=== PATIENT | female | born 1995 | race Caucasian/White ===

== ENCOUNTER 2017-09-22 10:52 | Inpatient (IN) | payer BC, OTHER ==
[~2017-09-22] VITALS: Ht 162.6 cm; Wt 92.5 kg
[~2017-09-22 10:52] MED LIST: ARIP2 PO; CITA10SO PO
[2017-09-22 10:55] VITALS: BP 132/83; PULSE 95; RESP 13; TEMP 98.5; O2SAT 97
--- NOTE | 2017-09-22 11:39 | PD ---
HPI Chief Complaint: Psychiatric Symptoms Time Seen by Provider: 11:34 Travel History International Travel<30 days: No Contact w/Intl Traveler<30days: No Traveled to known affect area: No History of Present Illness HPI 21-year-old 27 week female presents to the emergency room for evaluation of suicidal ideation and anxiety. Patient states she has been feeling this way since becoming . She is unsure about the relationship between her and the baby's father, whether or not she wants to keep the baby, and concern because she does not have a job and is not in school. She is history of anxiety and has been admitted before at [facility]. Patient states she was at her OB appointment this morning for routine checkup when she mentioned her feelings to the doctor. He wrote on prescription paper to come to the emergency room for psych evaluation. Patient presents voluntarily and is not under agosto act. She has been feeling suicidal and would use a gun to kill herself. She does not have access to a gun, there is not one in the house. Patient states her baby is healthy. She has normal movement and denies any vaginal bleeding. Patient complains of chest tightness that has been ongoing and is associated with her anxiety. Denies any other medical complaints at this time. Denies alcohol use, smoking cigarettes, or illicit drug use. Denies hallucinations or delusions. PFSH Past Medical History ADHD: Yes (OCD ALONSO) Anxiety: Yes Cancer: No Cardiovascular Problems: No Developmental Delay: No Diabetes: No Psychiatric: Yes (OCD, ALONSO) Immunizations Current: Yes Migraines: Yes Seizures: No Thyroid Disease: No Ulcer: No ?: Past Surgical History Surgical History: No Previous Surgery Social History Alcohol Use: No Tobacco Use: No Substance Use: No Allergies-Medications (Allergen,Severity, Reaction): Coded Allergies: No Known Allergies (Verified Adverse Reaction, Unknown, 09/22/17) Reported Meds & Prescriptions Reported Meds & Active Scripts Active Reported Buspirone (Buspirone HCl) 30 Mg Tab 30 Mg PO DAILY Prozac (Fluoxetine HCl) 20 Mg Cap 20 Mg PO DAILY Review of Systems Except as stated in HPI: all other systems reviewed are Neg Physical Exam Narrative GENERAL: Well-nourished, well-developed female in no acute distress. Afebrile. Ambulatory. SKIN: Focused skin assessment warm/dry. HEAD: Normocephalic. EYES: No scleral icterus. No injection or drainage. NECK: Supple, trachea midline. No JVD or lymphadenopathy. CARDIOVASCULAR: Regular rate and rhythm without murmurs, gallops, or rubs. RESPIRATORY: Breath sounds equal bilaterally. No accessory muscle use. GASTROINTESTINAL: Abdomen soft. Gravid. PSYCHIATRIC: No delusional thought processes. No hallucinations. Tearful. Data Data Last Documented VS Vital Signs Date Time Temp Pulse Resp B/P (MAP) Pulse Ox O2 Delivery O2 Flow Rate FiO2 09/22/17 10:55 98.5 95 13 132/83 (99) 97 Orders Orders Urinalysis - C+S If Indicated (09/22/17 11:09) Heart Tones (09/22/17 11:09) Psych Screen (09/22/17 11:09) Electrocardiogram (09/22/17 ) Complete Blood Count With Diff (09/22/17 11:33) Comprehensive Metabolic Panel (09/22/17 11:33) Alcohol (Ethanol) (09/22/17 11:33) Drug Screen, Random Urine (09/22/17 11:33) Urine Culture (09/22/17 11:55) Potassium Chloride (Kcl) (09/22/17 13:15) Nitrofurantoin Monohyd Macrocr (Macrobid (09/22/17 13:30) Labs Laboratory Tests Test 09/22/17 11:55 White Blood Count 9.4 TH/MM3 Red Blood Count 3.87 MIL/MM3 Hemoglobin 11.7 GM/DL Hematocrit 34.0 % Mean Corpuscular Volume 88.0 FL Mean Corpuscular Hemoglobin 30.4 PG Mean Corpuscular Hemoglobin Concent 34.5 % Red Cell Distribution Width 13.1 % Platelet Count 293 TH/MM3 Mean Platelet Volume 7.7 FL Neutrophils (%) (Auto) 83.3 % Lymphocytes (%) (Auto) 10.2 % Monocytes (%) (Auto) 6.2 % Eosinophils (%) (Auto) 0.2 % Basophils (%) (Auto) 0.1 % Neutrophils # (Auto) 7.9 TH/MM3 Lymphocytes # (Auto) 1.0 TH/MM3 Monocytes # (Auto) 0.6 TH/MM3 Eosinophils # (Auto) 0.0 TH/MM3 Basophils # (Auto) 0.0 TH/MM3 CBC Comment DIFF FINAL Differential Comment Urine Color YELLOW Urine Turbidity CLOUDY Urine pH 7.0 Urine Specific [place] 1.016 Urine Protein 30 mg/dL Urine Glucose (UA) NEG mg/dL Urine Ketones 10 mg/dL Urine Occult Blood NEG Urine Nitrite NEG Urine Bilirubin NEG Urine Urobilinogen 2.0 MG/DL Urine Leukocyte Esterase LARGE Urine RBC 9 /hpf Urine WBC 53 /hpf Urine Squamous Epithelial Cells 20 /hpf Urine Bacteria MANY /hpf Urine Mucus MOD /lpf Microscopic Urinalysis Comment CULTURE INDICATED Blood Urea Nitrogen 2 MG/DL Creatinine 0.45 MG/DL Random Glucose 111 MG/DL Total Protein 6.9 GM/DL Albumin 2.9 GM/DL Calcium Level 8.8 MG/DL Alkaline Phosphatase 72 U/L Aspartate Amino Transf (AST/SGOT) 19 U/L Alanine Aminotransferase (ALT/SGPT) 28 U/L Total Bilirubin 0.3 MG/DL Sodium Level 138 MEQ/L Potassium Level 3.2 MEQ/L Chloride Level 107 MEQ/L Carbon Dioxide Level 21.0 MEQ/L Anion Gap 10 MEQ/L Estimat Glomerular Filtration Rate 176 ML/MIN Urine Opiates Screen NEG Urine Barbiturates Screen NEG Urine Amphetamines Screen NEG Urine Benzodiazepines Screen NEG Urine Cocaine Screen NEG Urine Cannabinoids Screen NEG Ethyl Alcohol Level LESS THAN 3 MG/DL MDM Medical Decision Making Medical Screen Exam Complete: Yes Emergency Medical Condition: Yes Medical Record Reviewed: Yes Differential Diagnosis Mood disorder, anxiety, drug induced mood disorder, related mood disorder Narrative Course 21-year-old who is 7 weeks female with history of mood disorder and anxiety presents to the emergency room for evaluation of anxiety and suicidal ideation. She was at a routine checkup at her OBs office this morning when she mentioned her mood to him and he wrote a prescription for her to come to the ED for psych eval. She is currently voluntary. [place], she'll be placed under a Agosto act. States she has been feeling anxious since she got about the . She plans to kill herself with a gun but does not have access to one. She is unsure if she wants to keep the baby. She reports palpitations and chest tightness. Patient is tearful on exam. EKG shows normal sinus rhythm , unremarkable. Lung sounds clear and equal bilaterally. No murmurs appreciated. She denies vaginal bleeding. States baby is moving normally. heart tones ordered. CBC is unremarkable. CMP is only remarkable for mild hypokalemia. Potassium replaced with 40 mEq. UA shows evidence of urinary tract infection for which patient was given Macrobid. Drug screen and alcohol level are negative. Patient is medically cleared for psychiatric evaluation at this time. Diagnosis Primary Impression: Urinary tract infection during Qualified Codes: O23.42 - Unspecified infection of urinary tract in , second trimester Condition: Stable Laura Stanley Sep 22, 2017 11:39
[2017-09-22 12:09] LABS: AUTOMATED NEUTROPHIL # 7.9 TH/MM3 (1.8-7.7); BASOPHIL % 0.1 % (0.0-2.0); EOSINOPHIL % 0.2 % (0.0-4.0); HEMOGLOBIN 11.7 GM/DL (11.6-15.3); LYMPH % 10.2 % (9.0-44.0); MEAN CORPUSCULAR HEMOGLOBIN 30.4 PG (27.0-34.0); MEAN CORPUSCULAR HGB CONC 34.5 % (32.0-36.0); MEAN PLATELET VOLUME 7.7 FL (7.0-11.0); MONO % 6.2 % (0.0-8.0); MONOCYTE # 0.6 TH/MM3 (0-0.9); NEUT % 83.3 % (16.0-70.0); PLATELET COUNT 293 TH/MM3 (150-450); RED BLOOD COUNT 3.87 MIL/MM3 (4.00-5.30); RED CELL DISTRIBUTION WIDTH 13.1 % (11.6-17.2); WHITE BLOOD COUNT 9.4 TH/MM3 (4.0-11.0)
[2017-09-22 12:21] LABS: BACTERIA, URINE MANY /hpf; BILIRUBIN, URINE NEG (NEG); BLOOD, URINE NEG (NEG); GLUCOSE,URINE NEG (NEG); KETONE, URINE 10 mg/dL (NEG); MUCUS URINE MOD /lpf (OCC); NITRITE,URINE NEG (NEG); SQUAMOUS EPITHELIAL CELL URINE 20 /hpf (0-5); URINE COLOR YELLOW (YELLW/STRAW); URINE LEUKOCYTE ESTERASE LARGE (NEG)
[2017-09-22 12:32] LABS: ALBUMIN 2.9 GM/DL (3.4-5.0); ALT (GPT) 28 U/L (10-53); AST (GOT) 19 U/L (15-37); BLOOD UREA NITROGEN 2 MG/DL (7-18); CALCIUM 8.8 MG/DL (8.5-10.1); CHLORIDE 107 MEQ/L (98-107); CREATININE 0.45 MG/DL (0.50-1.00); GLOMERULAR FILTRATION RATE 176 ML/MIN (>89); GLUCOSE,RANDOM 111 MG/DL (74-106); SODIUM (NA) 138 MEQ/L (136-145)
[2017-09-22 12:34] LABS: ALKALINE PHOSPHATASE 72 U/L (45-117); TOTAL BILIRUBIN ADULT 0.3 MG/DL (0.2-1.0); TOTAL PROTEIN 6.9 GM/DL (6.4-8.2)
[2017-09-22] MEDS ORDERED: BUSP30TA PO (13:00)
[2017-09-22] MEDS ORDERED: PROZ20CA11 PO (13:00)
[2017-09-22] MEDS ORDERED: POTASSIUM CHLORIDE 20 MEQ CONTROLLED RELEASE TAB PO ONE (13:15)
[2017-09-22] MEDS ORDERED: NITROFURANTOIN MONOHYD MACROCR 100 MG CAP PO ONE (13:30)
[2017-09-22] MEDS ORDERED: MAGNESIUM HYDROXIDE SUSP 30 ML CUP PO PRN (17:00)
[2017-09-22] MEDS ORDERED: ACETAMINOPHEN 325 MG TAB PO PRN (17:00)
[2017-09-22] MEDS ORDERED: ALUMINUM/MAGNESIUM/SIMETH 30 ML CUP PO PRN (17:00)
--- NOTE | 2017-09-22 17:00 | PD ---
History of Present Illness Chief Complaint: Psychiatric Symptoms Time Seen by Provider: 16:05 Travel History International Travel<30 Days: No Contact w/Intl Traveler<30days: No Known affected area: No Legal Status Legal Status: Agosto Act Agosto Act Signed By: LISA Underwood History of Present Illness: History of Present Illness HPI 21-year-old 27 week female with history of anxiety, depression and OCD who presents to the emergency room, referred by Dr. Fly Lewis her senior administrative support for evaluation of suicidal ideation and anxiety. She was placed under a Agosto act by this telegraphic typewriter installer after she refused voluntary admission. She reports that for the past several months she has been feeling hopeless, barely able to function, unable to make day to day decisions, " stuck in my own head', terrified of being , anxious, difficulty sleeping with only reporting two hours of sleep due to repetitive thoughts, suicidal thoughts, " I don' t see a future for myself", marked ambivalence about her and wether she parents the child or places the child up for adoption. She reported to ED provider that she would use a gun. She does not have access to a gun. She was prescribed Prozac and Buspar but has been inconsistent in taking it due to nausea. EMR reviewed. Patient was at [facility] under the care of Dr. Angela in 2011 when she was 16 years old. Since then she has been in out patient therapy but not on a consistent basis. Patient is alert, oriented female in hospital [facility]. She is cooperative. She is anxious and demonstrates difficulty in making decisions. There is no psychosis or janell. She admits to suicidal ideation but contracts for safety. Mother at bedside. Mother reports that she is concerned for her daughter due to her high level of anxiety and that she has told her that the only solution is to kill herself. She also reports that there have been several people in the family that have committed suicide including the patient's great grandfather who hung himself this past December. I received a call from her senior administrative support Dr. Lewis who was very concerned for the patient's safety. he saw the patient in his office this morning and will see the patient tomorrow. PFSH Past Medical History ADHD: Yes (OCD ALONSO) Anxiety: Yes Cancer: No Cardiovascular Problems: No Developmental Delay: No Diabetes: No Psychiatric: Yes (OCD, ALONSO) Immunizations Current: Yes Migraines: Yes Seizures: No Thyroid Disease: No Ulcer: No ?: Past Surgical History Surgical History: No Previous Surgery Psychiatric History Psychiatric History Hx Psychiatric Treatment: HBS in 2011. Outpatietn treatmetn intermittently since then. History of Inpatient Treatment: Yes Guns or firearms in home: No Social History Single female who lives with her parents. Hx Alcohol Use: No Hx Tobacco Use: No Hx Substance Use: No Hx of Substance Use Treatment: No Family Psychiatric History great grandfather completed suicide December 2106. Allergies-Medications (Allergen,Severity, Reaction): Coded Allergies: No Known Allergies (Verified Allergy, Unknown, 09/22/17) Reported Meds & Prescriptions Reported Meds & Active Scripts Active Reported Buspirone (Buspirone HCl) 30 Mg Tab 30 Mg PO DAILY Prozac (Fluoxetine HCl) 20 Mg Cap 20 Mg PO DAILY Review of Systems Psychiatric: COMPLAINS OF: Anxiety, Suicidal Ideation Mental Status Examination Appearance: Appropriate Consciousness: Alert Orientation: x4 Motor Activity: Normal gait Speech: Rapid Language: Adequate Fund of Knowledge: Adequate Attention and Concentration: Adequate Memory: Unremarkable Mood: Anxious Affect: Appropriate Thought Process & Associations: Intact Thought Content: Appropriate Hallucination Type: None Delusion Type: None Suicidal Ideation: Yes Suicidal Plan: Yes (use a gun) Suicidal Intention: No Homicidal Ideation: No Homicidal Plan: No Homicidal Intention: No Insight: Poor Judgment: Adequate MDM Medical Decision Making Medical Record Reviewed: Yes Assessment/Plan 21-year-old 27 week female with history of anxiety, depression and OCD who presents to the emergency room, referred by Dr. Fly Lewis her senior administrative support for evaluation of suicidal ideation and anxiety. She was placed under a Agosto act by this telegraphic typewriter installer after she refused voluntary admission. She reports that for the past several months she has been feeling hopeless, barely able to function, unable to make day to day decisions, " stuck in my own head', terrified of being , anxious, difficulty sleeping with only reporting two hours of sleep due to repetitive thoughts, suicidal thoughts, " I don' t see a future for myself", marked ambivalence about her and wether she parents the child or places the child up for adoption. She reported to ED provider that she would use a gun. She does not have access to a gun. She was prescribed Prozac and Buspar but has been inconsistent in taking it due to nausea. Patient meets criteria for inpatient treatment for further observation, to adjust medication and to maintain safety. Orders Orders Urinalysis - C+S If Indicated (09/22/17 11:09) Heart Tones (09/22/17 11:09) Psych Screen (09/22/17 11:09) Electrocardiogram (09/22/17 ) Complete Blood Count With Diff (09/22/17 11:33) Comprehensive Metabolic Panel (09/22/17 11:33) Alcohol (Ethanol) (09/22/17 11:33) Drug Screen, Random Urine (09/22/17 11:33) Urine Culture (09/22/17 11:55) Potassium Chloride (Kcl) (09/22/17 13:15) Nitrofurantoin Monohyd Macrocr (Macrobid (09/22/17 13:30) Results Vital Signs Date Time Temp Pulse Resp B/P (MAP) Pulse Ox O2 Delivery O2 Flow Rate FiO2 09/22/17 10:55 98.5 95 13 132/83 (99) 97 Laboratory Tests Test 09/22/17 11:55 White Blood Count 9.4 Red Blood Count 3.87 Hemoglobin 11.7 Hematocrit 34.0 Mean Corpuscular Volume 88.0 Mean Corpuscular Hemoglobin 30.4 Mean Corpuscular Hemoglobin Concent 34.5 Red Cell Distribution Width 13.1 Platelet Count 293 Mean Platelet Volume 7.7 Neutrophils (%) (Auto) 83.3 Lymphocytes (%) (Auto) 10.2 Monocytes (%) (Auto) 6.2 Eosinophils (%) (Auto) 0.2 Basophils (%) (Auto) 0.1 Neutrophils # (Auto) 7.9 Lymphocytes # (Auto) 1.0 Monocytes # (Auto) 0.6 Eosinophils # (Auto) 0.0 Basophils # (Auto) 0.0 CBC Comment DIFF FINAL Differential Comment Urine Color YELLOW Urine Turbidity CLOUDY Urine pH 7.0 Urine Specific [place] 1.016 Urine Protein 30 Urine Glucose (UA) NEG Urine Ketones 10 Urine Occult Blood NEG Urine Nitrite NEG Urine Bilirubin NEG Urine Urobilinogen 2.0 Urine Leukocyte Esterase LARGE Urine RBC 9 Urine WBC 53 Urine Squamous Epithelial Cells 20 Urine Bacteria MANY Urine Mucus MOD Microscopic Urinalysis Comment CULTURE INDICATED Blood Urea Nitrogen 2 Creatinine 0.45 Random Glucose 111 Total Protein 6.9 Albumin 2.9 Calcium Level 8.8 Alkaline Phosphatase 72 Aspartate Amino Transf (AST/SGOT) 19 Alanine Aminotransferase (ALT/SGPT) 28 Total Bilirubin 0.3 Sodium Level 138 Potassium Level 3.2 Chloride Level 107 Carbon Dioxide Level 21.0 Anion Gap 10 Estimat Glomerular Filtration Rate 176 Urine Opiates Screen NEG Urine Barbiturates Screen NEG Urine Amphetamines Screen NEG Urine Benzodiazepines Screen NEG Urine Cocaine Screen NEG Urine Cannabinoids Screen NEG Ethyl Alcohol Level LESS THAN 3 Date/Time Source Procedure Growth Status 09/22/17 11:55 Urine Clean Catch Urine Culture Pending Received Diagnosis Primary Impression: Adjustment disorder Additional Impression: Urinary tract infection during Admitting Information Admitting Physician Requests: Admit Condition: Stable Problem Qualifiers Primary Impression: Adjustment disorder Qualified Codes: F43.23 - Adjustment disorder with mixed anxiety and depressed mood Additional Impression: Urinary tract infection during Qualified Codes: O23.42 - Unspecified infection of urinary tract in , second trimester Kimmy Boone Sep 22, 2017 17:00
--- NOTE | 2017-09-22 17:00 | PD ---
History of Present Illness Chief Complaint: Psychiatric Symptoms Time Seen by Provider: 16:05 Travel History International Travel<30 Days: No Contact w/Intl Traveler<30days: No Known affected area: No Legal Status Legal Status: Agosto Act Agosto Act Signed By: LISA Underwood History of Present Illness: History of Present Illness HPI 21-year-old 27 week female with history of anxiety, depression and OCD who presents to the emergency room, referred by Dr. Fly Lewis her fbi special agent for evaluation of suicidal ideation and anxiety. She was placed under a Agosto act by this inspector automatic typewriter after she refused voluntary admission. She reports that for the past several months she has been feeling hopeless, barely able to function, unable to make day to day decisions, " stuck in my own head', terrified of being , anxious, difficulty sleeping with only reporting two hours of sleep due to repetitive thoughts, suicidal thoughts, " I don' t see a future for myself", marked ambivalence about her and wether she parents the child or places the child up for adoption. She reported to ED provider that she would use a gun. She does not have access to a gun. She was prescribed Prozac and Buspar but has been inconsistent in taking it due to nausea. EMR reviewed. Patient was at [facility] under the care of Dr. Angela in 2011 when she was 16 years old. Since then she has been in out patient therapy but not on a consistent basis. Patient is alert, oriented female in hospital [facility]. She is cooperative. She is anxious and demonstrates difficulty in making decisions. There is no psychosis or janell. She admits to suicidal ideation but contracts for safety. Mother at bedside. Mother reports that she is concerned for her daughter due to her high level of anxiety and that she has told her that the only solution is to kill herself. She also reports that there have been several people in the family that have committed suicide including the patient's great grandfather who hung himself this past December. I received a call from her fbi special agent Dr. Lewis who was very concerned for the patient's safety. he saw the patient in his office this morning and will see the patient tomorrow. PFSH Past Medical History ADHD: Yes (OCD ALONSO) Anxiety: Yes Cancer: No Cardiovascular Problems: No Developmental Delay: No Diabetes: No Psychiatric: Yes (OCD, ALONSO) Immunizations Current: Yes Migraines: Yes Seizures: No Thyroid Disease: No Ulcer: No ?: Past Surgical History Surgical History: No Previous Surgery Psychiatric History Psychiatric History Hx Psychiatric Treatment: HBS in 2011. Outpatietn treatmetn intermittently since then. History of Inpatient Treatment: Yes Guns or firearms in home: No Social History Single female who lives with her parents. Hx Alcohol Use: No Hx Tobacco Use: No Hx Substance Use: No Hx of Substance Use Treatment: No Family Psychiatric History great grandfather completed suicide December 2106. Allergies-Medications (Allergen,Severity, Reaction): Coded Allergies: No Known Allergies (Verified Allergy, Unknown, 09/22/17) Reported Meds & Prescriptions Reported Meds & Active Scripts Active Reported Buspirone (Buspirone HCl) 30 Mg Tab 30 Mg PO DAILY Prozac (Fluoxetine HCl) 20 Mg Cap 20 Mg PO DAILY Review of Systems Psychiatric: COMPLAINS OF: Anxiety, Suicidal Ideation Mental Status Examination Appearance: Appropriate Consciousness: Alert Orientation: x4 Motor Activity: Normal gait Speech: Rapid Language: Adequate Fund of Knowledge: Adequate Attention and Concentration: Adequate Memory: Unremarkable Mood: Anxious Affect: Appropriate Thought Process & Associations: Intact Thought Content: Appropriate Hallucination Type: None Delusion Type: None Suicidal Ideation: Yes Suicidal Plan: Yes (use a gun) Suicidal Intention: No Homicidal Ideation: No Homicidal Plan: No Homicidal Intention: No Insight: Poor Judgment: Adequate MDM Medical Decision Making Medical Record Reviewed: Yes Assessment/Plan 21-year-old 27 week female with history of anxiety, depression and OCD who presents to the emergency room, referred by Dr. Fly Lewis her fbi special agent for evaluation of suicidal ideation and anxiety. She was placed under a Agosto act by this inspector automatic typewriter after she refused voluntary admission. She reports that for the past several months she has been feeling hopeless, barely able to function, unable to make day to day decisions, " stuck in my own head', terrified of being , anxious, difficulty sleeping with only reporting two hours of sleep due to repetitive thoughts, suicidal thoughts, " I don' t see a future for myself", marked ambivalence about her and wether she parents the child or places the child up for adoption. She reported to ED provider that she would use a gun. She does not have access to a gun. She was prescribed Prozac and Buspar but has been inconsistent in taking it due to nausea. Patient meets criteria for inpatient treatment for further observation, to adjust medication and to maintain safety. Orders Orders Urinalysis - C+S If Indicated (09/22/17 11:09) Heart Tones (09/22/17 11:09) Psych Screen (09/22/17 11:09) Electrocardiogram (09/22/17 ) Complete Blood Count With Diff (09/22/17 11:33) Comprehensive Metabolic Panel (09/22/17 11:33) Alcohol (Ethanol) (09/22/17 11:33) Drug Screen, Random Urine (09/22/17 11:33) Urine Culture (09/22/17 11:55) Potassium Chloride (Kcl) (09/22/17 13:15) Nitrofurantoin Monohyd Macrocr (Macrobid (09/22/17 13:30) Results Vital Signs Date Time Temp Pulse Resp B/P (MAP) Pulse Ox O2 Delivery O2 Flow Rate FiO2 09/22/17 10:55 98.5 95 13 132/83 (99) 97 Laboratory Tests Test 09/22/17 11:55 White Blood Count 9.4 Red Blood Count 3.87 Hemoglobin 11.7 Hematocrit 34.0 Mean Corpuscular Volume 88.0 Mean Corpuscular Hemoglobin 30.4 Mean Corpuscular Hemoglobin Concent 34.5 Red Cell Distribution Width 13.1 Platelet Count 293 Mean Platelet Volume 7.7 Neutrophils (%) (Auto) 83.3 Lymphocytes (%) (Auto) 10.2 Monocytes (%) (Auto) 6.2 Eosinophils (%) (Auto) 0.2 Basophils (%) (Auto) 0.1 Neutrophils # (Auto) 7.9 Lymphocytes # (Auto) 1.0 Monocytes # (Auto) 0.6 Eosinophils # (Auto) 0.0 Basophils # (Auto) 0.0 CBC Comment DIFF FINAL Differential Comment Urine Color YELLOW Urine Turbidity CLOUDY Urine pH 7.0 Urine Specific [place] 1.016 Urine Protein 30 Urine Glucose (UA) NEG Urine Ketones 10 Urine Occult Blood NEG Urine Nitrite NEG Urine Bilirubin NEG Urine Urobilinogen 2.0 Urine Leukocyte Esterase LARGE Urine RBC 9 Urine WBC 53 Urine Squamous Epithelial Cells 20 Urine Bacteria MANY Urine Mucus MOD Microscopic Urinalysis Comment CULTURE INDICATED Blood Urea Nitrogen 2 Creatinine 0.45 Random Glucose 111 Total Protein 6.9 Albumin 2.9 Calcium Level 8.8 Alkaline Phosphatase 72 Aspartate Amino Transf (AST/SGOT) 19 Alanine Aminotransferase (ALT/SGPT) 28 Total Bilirubin 0.3 Sodium Level 138 Potassium Level 3.2 Chloride Level 107 Carbon Dioxide Level 21.0 Anion Gap 10 Estimat Glomerular Filtration Rate 176 Urine Opiates Screen NEG Urine Barbiturates Screen NEG Urine Amphetamines Screen NEG Urine Benzodiazepines Screen NEG Urine Cocaine Screen NEG Urine Cannabinoids Screen NEG Ethyl Alcohol Level LESS THAN 3 Date/Time Source Procedure Growth Status 09/22/17 11:55 Urine Clean Catch Urine Culture Pending Received Diagnosis Primary Impression: Adjustment disorder Additional Impression: Urinary tract infection during Admitting Information Admitting Physician Requests: Admit Condition: Stable Problem Qualifiers Primary Impression: Adjustment disorder Qualified Codes: F43.23 - Adjustment disorder with mixed anxiety and depressed mood Additional Impression: Urinary tract infection during Qualified Codes: O23.42 - Unspecified infection of urinary tract in , second trimester Kimmy Boone Sep 22, 2017 17:00
--- NOTE | 2017-09-22 17:00 | PD ---
History of Present Illness Chief Complaint: Psychiatric Symptoms Time Seen by Provider: 16:05 Travel History International Travel<30 Days: No Contact w/Intl Traveler<30days: No Known affected area: No Legal Status Legal Status: Agosto Act Agosto Act Signed By: LISA Underwood History of Present Illness: History of Present Illness HPI 21-year-old 27 week female with history of anxiety, depression and OCD who presents to the emergency room, referred by Dr. Fly Lewis her wildlife biostation research ecologist for evaluation of suicidal ideation and anxiety. She was placed under a Agosto act by this automobile service writer after she refused voluntary admission. She reports that for the past several months she has been feeling hopeless, barely able to function, unable to make day to day decisions, " stuck in my own head', terrified of being , anxious, difficulty sleeping with only reporting two hours of sleep due to repetitive thoughts, suicidal thoughts, " I don' t see a future for myself", marked ambivalence about her and wether she parents the child or places the child up for adoption. She reported to ED provider that she would use a gun. She does not have access to a gun. She was prescribed Prozac and Buspar but has been inconsistent in taking it due to nausea. EMR reviewed. Patient was at [facility] under the care of Dr. Angela in 2011 when she was 16 years old. Since then she has been in out patient therapy but not on a consistent basis. Patient is alert, oriented [facility]. She is cooperative. She is anxious and demonstrates difficulty in making decisions. There is no psychosis or janell. She admits to suicidal ideation but contracts for safety. Mother at bedside. Mother reports that she is concerned for her daughter due to her high level of anxiety and that she has told her that the only solution is to kill herself. She also reports that there have been several people in the family that have committed suicide including the patient's great grandfather who hung himself this past December. I received a call from her wildlife biostation research ecologist Dr. Lewis who was very concerned for the patient's safety. he saw the patient in his office this morning and will see the patient tomorrow. PFSH Past Medical History ADHD: Yes (OCD ALONSO) Anxiety: Yes Cancer: No Cardiovascular Problems: No Developmental Delay: No Diabetes: No Psychiatric: Yes (OCD, ALONSO) Immunizations Current: Yes Migraines: Yes Seizures: No Thyroid Disease: No Ulcer: No ?: Past Surgical History Surgical History: No Previous Surgery Psychiatric History Psychiatric History Hx Psychiatric Treatment: HBS in 2011. Outpatietn treatmetn intermittently since then. History of Inpatient Treatment: Yes Guns or firearms in home: No Social History Single female who lives with her parents. Hx Alcohol Use: No Hx Tobacco Use: No Hx Substance Use: No Hx of Substance Use Treatment: No Family Psychiatric History great grandfather completed suicide December 2106. Allergies-Medications (Allergen,Severity, Reaction): Coded Allergies: No Known Allergies (Verified Allergy, Unknown, 09/22/17) Reported Meds & Prescriptions Reported Meds & Active Scripts Active Reported Buspirone (Buspirone HCl) 30 Mg Tab 30 Mg PO DAILY Prozac (Fluoxetine HCl) 20 Mg Cap 20 Mg PO DAILY Review of Systems Psychiatric: COMPLAINS OF: Anxiety, Suicidal Ideation Mental Status Examination Appearance: Appropriate Consciousness: Alert Orientation: x4 Motor Activity: Normal gait Speech: Rapid Language: Adequate Fund of Knowledge: Adequate Attention and Concentration: Adequate Memory: Unremarkable Mood: Anxious Affect: Appropriate Thought Process & Associations: Intact Thought Content: Appropriate Hallucination Type: None Delusion Type: None Suicidal Ideation: Yes Suicidal Plan: Yes (use a gun) Suicidal Intention: No Homicidal Ideation: No Homicidal Plan: No Homicidal Intention: No Insight: Poor Judgment: Adequate MDM Medical Decision Making Medical Record Reviewed: Yes Assessment/Plan 21-year-old 27 week female with history of anxiety, depression and OCD who presents to the emergency room, referred by Dr. Fly Lewis her wildlife biostation research ecologist for evaluation of suicidal ideation and anxiety. She was placed under a Agosto act by this automobile service writer after she refused voluntary admission. She reports that for the past several months she has been feeling hopeless, barely able to function, unable to make day to day decisions, " stuck in my own head', terrified of being , anxious, difficulty sleeping with only reporting two hours of sleep due to repetitive thoughts, suicidal thoughts, " I don' t see a future for myself", marked ambivalence about her and wether she parents the child or places the child up for adoption. She reported to ED provider that she would use a gun. She does not have access to a gun. She was prescribed Prozac and Buspar but has been inconsistent in taking it due to nausea. Patient meets criteria for inpatient treatment for further observation, to adjust medication and to maintain safety. Orders Orders Urinalysis - C+S If Indicated (09/22/17 11:09) Heart Tones (09/22/17 11:09) Psych Screen (09/22/17 11:09) Electrocardiogram (09/22/17 ) Complete Blood Count With Diff (09/22/17 11:33) Comprehensive Metabolic Panel (09/22/17 11:33) Alcohol (Ethanol) (09/22/17 11:33) Drug Screen, Random Urine (09/22/17 11:33) Urine Culture (09/22/17 11:55) Potassium Chloride (Kcl) (09/22/17 13:15) Nitrofurantoin Monohyd Macrocr (Macrobid (09/22/17 13:30) Results Vital Signs Date Time Temp Pulse Resp B/P (MAP) Pulse Ox O2 Delivery O2 Flow Rate FiO2 09/22/17 10:55 98.5 95 13 132/83 (99) 97 Laboratory Tests Test 09/22/17 11:55 White Blood Count 9.4 Red Blood Count 3.87 Hemoglobin 11.7 Hematocrit 34.0 Mean Corpuscular Volume 88.0 Mean Corpuscular Hemoglobin 30.4 Mean Corpuscular Hemoglobin Concent 34.5 Red Cell Distribution Width 13.1 Platelet Count 293 Mean Platelet Volume 7.7 Neutrophils (%) (Auto) 83.3 Lymphocytes (%) (Auto) 10.2 Monocytes (%) (Auto) 6.2 Eosinophils (%) (Auto) 0.2 Basophils (%) (Auto) 0.1 Neutrophils # (Auto) 7.9 Lymphocytes # (Auto) 1.0 Monocytes # (Auto) 0.6 Eosinophils # (Auto) 0.0 Basophils # (Auto) 0.0 CBC Comment DIFF FINAL Differential Comment Urine Color YELLOW Urine Turbidity CLOUDY Urine pH 7.0 Urine Specific [place] 1.016 Urine Protein 30 Urine Glucose (UA) NEG Urine Ketones 10 Urine Occult Blood NEG Urine Nitrite NEG Urine Bilirubin NEG Urine Urobilinogen 2.0 Urine Leukocyte Esterase LARGE Urine RBC 9 Urine WBC 53 Urine Squamous Epithelial Cells 20 Urine Bacteria MANY Urine Mucus MOD Microscopic Urinalysis Comment CULTURE INDICATED Blood Urea Nitrogen 2 Creatinine 0.45 Random Glucose 111 Total Protein 6.9 Albumin 2.9 Calcium Level 8.8 Alkaline Phosphatase 72 Aspartate Amino Transf (AST/SGOT) 19 Alanine Aminotransferase (ALT/SGPT) 28 Total Bilirubin 0.3 Sodium Level 138 Potassium Level 3.2 Chloride Level 107 Carbon Dioxide Level 21.0 Anion Gap 10 Estimat Glomerular Filtration Rate 176 Urine Opiates Screen NEG Urine Barbiturates Screen NEG Urine Amphetamines Screen NEG Urine Benzodiazepines Screen NEG Urine Cocaine Screen NEG Urine Cannabinoids Screen NEG Ethyl Alcohol Level LESS THAN 3 Date/Time Source Procedure Growth Status 09/22/17 11:55 Urine Clean Catch Urine Culture Pending Received Diagnosis Primary Impression: Adjustment disorder Additional Impression: Urinary tract infection during Admitting Information Admitting Physician Requests: Admit Condition: Stable Problem Qualifiers Primary Impression: Adjustment disorder Qualified Codes: F43.23 - Adjustment disorder with mixed anxiety and depressed mood Additional Impression: Urinary tract infection during Qualified Codes: O23.42 - Unspecified infection of urinary tract in , second trimester Kimmy Boone Sep 22, 2017 17:00
[2017-09-22 19:55] VITALS: BP 124/82; PULSE 99; RESP 18; TEMP 98.8; O2SAT 99
[2017-09-23 05:59] VITALS: BP 126/71; PULSE 92; RESP 17; TEMP 98.5; O2SAT 99
[2017-09-23 08:27] LABS: BICARBONATE 22.8 MEQ/L (21.0-32.0); BLOOD UREA NITROGEN 3 MG/DL (7-18); CALCIUM 8.9 MG/DL (8.5-10.1); CHLORIDE 107 MEQ/L (98-107); CREATININE 0.45 MG/DL (0.50-1.00); GLOMERULAR FILTRATION RATE 176 ML/MIN (>89); GLUCOSE,RANDOM 86 MG/DL (74-106); SODIUM (NA) 138 MEQ/L (136-145)
[2017-09-23 08:29] LABS: CHOLESTEROL 222 MG/DL (120-200)
[2017-09-23 08:31] LABS: CHOLESTEROL/ HDL RATIO 3.31 RATIO; LDL CHOLESTEROL 120 MG/DL (0-99); TRIGLYCERIDES 174 MG/DL (42-150)
--- NOTE | 2017-09-23 09:02 | HHI.HP ---
Provisional Diagnosis Admission Date Sep 22, 2017 at 17:07 [place] I. Adjustment disorder with depressed mood [place] III. 27 weeks gestation Certification of Person's Competence To Provide Express and Informed Consent I have personally examined Nadja Christianson , a person being served at [facility] on, Sep 23, 2017 09:02. Express and informed consent means consent voluntarily given in writing, by a competent person, after sufficient explanation and disclosure of the subject matter involved to enable the person to make a knowing and willful decision without any element of force, fraud, deceit, duress, or other form of constraint or coercion. This person is 18 years of age or older, is not now known to be incompetent to consent to treatment with a guardian advocate, and does not have a health care surrogate or proxy currently making medical treatment decisions. I have found this person to be one of the following: [x] Competent to provide express and informed consent, as defined above, for voluntary admission to this facility and is competent to provide express and informed consent for treatment. He/she has the consistent capacity to make well reasoned, willful, and knowing decisions concerning his or her medical or mental health treatment. The person fully and consistently understands the purpose of the admission for examination/placement and is fully capable of personally exercising all rights assured [place] Incompetent to provide express and informed consent to voluntary admission, and this is incompetent to provide express and informed consent to treatment. The person must be transferred to involuntary status and a petition for a guardian advocate filed with the Circuit Court. [] Refusing to provide express and informed consent to voluntary admission but is competent to provide express and informed consent for treatment. The person must be discharged or transferred to involuntary status. Form shall be completed within 24 hours of a person's arrival at the receiving facility and filed in the clinical record of each person: 1. Admitted on a voluntary basis 2. Permitted to provide express and informed consent to his/her own treatment 3. Allowed to transfer from involuntary to voluntary status 4. Prior to permitting a person to consent to his or her own treatment after having been previously found incompetent to consent to treatment. History of Present Illness Capacity: Has Capacity Psych Chief Complaint: depression with suicidal ideations HPI Patient is a 24-year-old woman, single domiciled parents, currently unemployed supported financially by savings and parents, with past psychiatric history of general anxiety disorder, OCD, depression 1 previous psychiatric hospitalization, no previous suicide attempts or self-injurious behavior, has outpatient mental health provider, with a past medical history of current 37 weeks gestation, was brought into the emergency room under Agosto act for depression, anxiety and suicidal ideation with methods of using a gun in the context of multiple psychosocial stressors. As per ED note patient was unsure if she wanted to keep the baby, had been brought to the hospital to be referred by her RING ROLLING MACHINE OPERATOR, Dr. Fly lewis, in which patient had endorsed feeling depressed, hopeless and having thoughts of suicide by using a gun. Patient also reported feeling hopeless, barely able to function, unable to make day-to-day decisions with decrease in suicidal ideation. She was found sitting in hospital bed, cooperative today. Patient reports that she had been feeling overwhelmed recently had anxiety about keeping the baby, having relationship discord with her boyfriend whom she no longer lives with and feels that life is not moving forward. Patient reports due to the stressors having stopped going to work as well as did not reengage in the following semester in her college studies. Patient reports that she has been feeling increasingly depressed along with suicidal ideations for the past month which has been increasing to 3-4 times a week last time being prior to coming to the hospital and reports that having specific plan but had thought about methods for the past couple days when necessary using a gun despite of her not going 1. Patient reports of escalation having decreased sleep, energy, concentration, feeling depressed, feeling helpless and hopeless, and having suicidal ideations. Patient denies any manic or psychotic symptoms at this time, denies any auditory or visual hallucinations or delusions. Past psychiatric history: 3 psychiatric diagnosis of generalized anxiety disorder, OCD, depression has outpatient provider, Dr. Mike Mcrae, lasting 1 week ago, presented to trials include fluoxetine 20 mg daily history BuSpar 30 mg by mouth daily. Family psychiatric history: Grandfather committed suicide in December of this year, also as per chart noted multiple suicides in the family. Substance use history: Denies Past medical history: currently with 22nd week gestation Allergies: NKDA Social history: Single, no children, currently with first child, domicile with parents whom she recently moved back in with since May but previously living in [place] and attending college. Highest education is negro in college studying psychology. Unemployed currently supported financially by parents. Review of Systems Except as stated in HPI: all other systems reviewed are Neg Past Psych History Violence risk - others (6 mos) Low Violence risk - self (6 mos) Elevated due to recent suicidal ideations and worsening depression Substance Abuse History Drugs/Alcohol past 12 months Denies Past Family Social History Coded Allergies: No Known Allergies (Verified Allergy, Unknown, 09/22/17) Reported Medications Buspirone (Buspirone) 30 Mg Tab, 30 MG PO DAILY for Anxiety, TAB 0 Refills 09/22/17 Discontinued Reported Medications Fluoxetine (Prozac) 20 Mg Cap, 20 MG PO DAILY, #30 CAP 0 Refills 09/22/17 Current Medications Medications (Trade) Dose Ordered Sig/Kaitlynn Route Start Time Stop Time Status Last Admin (Tylenol) 650 mg Q4H PRN PO 09/22/17 17:00 (Milk Of Magnesia Liq) 30 ml DAILY PRN PO 09/22/17 17:00 (Mag-Al Plus Susp Liq) 30 ml Q6H PRN PO 09/22/17 17:00 (Buspar) 30 mg DAILY PO 09/23/17 09:00 UNV Family Psych History Grandfather committed suicide in December of this year, also as per chart noted multiple suicides in the family. Social History Single, no children, currently with first child, domicile with parents whom she recently moved back in with since May but previously living in [place] and attending college. Highest education is negro in college studying psychology. Unemployed currently supported financially by parents. Patient's Strengths (min. 2) Verbal and communicative Physical Exam Patient not noted to be in acute distress, no gross motor abnormalities, no tremors or EPS, no noted psychomotor retardation or agitation. Vital Signs Vital Signs Date Time Temp Pulse Resp B/P (MAP) Pulse Ox O2 Delivery O2 Flow Rate FiO2 09/23/17 05:59 98.5 92 17 126/71 (89) 99 Lab Results Labs reviewed. Test 09/22/17 11:55 09/23/17 07:30 White Blood Count 9.4 TH/MM3 Red Blood Count 3.87 MIL/MM3 Hemoglobin 11.7 GM/DL Hematocrit 34.0 % Mean Corpuscular Volume 88.0 FL Mean Corpuscular Hemoglobin 30.4 PG Mean Corpuscular Hemoglobin Concent 34.5 % Red Cell Distribution Width 13.1 % Platelet Count 293 TH/MM3 Mean Platelet Volume 7.7 FL Neutrophils (%) (Auto) 83.3 % Lymphocytes (%) (Auto) 10.2 % Monocytes (%) (Auto) 6.2 % Eosinophils (%) (Auto) 0.2 % Basophils (%) (Auto) 0.1 % Neutrophils # (Auto) 7.9 TH/MM3 Lymphocytes # (Auto) 1.0 TH/MM3 Monocytes # (Auto) 0.6 TH/MM3 Eosinophils # (Auto) 0.0 TH/MM3 Basophils # (Auto) 0.0 TH/MM3 CBC Comment DIFF FINAL Differential Comment Urine Color YELLOW Urine Turbidity CLOUDY Urine pH 7.0 Urine Specific [place] 1.016 Urine Protein 30 mg/dL Urine Glucose (UA) NEG mg/dL Urine Ketones 10 mg/dL Urine Occult Blood NEG Urine Nitrite NEG Urine Bilirubin NEG Urine Urobilinogen 2.0 MG/DL Urine Leukocyte Esterase LARGE Urine RBC 9 /hpf Urine WBC 53 /hpf Urine Squamous Epithelial Cells 20 /hpf Urine Bacteria MANY /hpf Urine Mucus MOD /lpf Microscopic Urinalysis Comment CULTURE INDICATED Blood Urea Nitrogen 2 MG/DL 3 MG/DL Creatinine 0.45 MG/DL 0.45 MG/DL Random Glucose 111 MG/DL 86 MG/DL Total Protein 6.9 GM/DL Albumin 2.9 GM/DL Calcium Level 8.8 MG/DL 8.9 MG/DL Alkaline Phosphatase 72 U/L Aspartate Amino Transf (AST/SGOT) 19 U/L Alanine Aminotransferase (ALT/SGPT) 28 U/L Total Bilirubin 0.3 MG/DL Sodium Level 138 MEQ/L 138 MEQ/L Potassium Level 3.2 MEQ/L 3.4 MEQ/L Chloride Level 107 MEQ/L 107 MEQ/L Carbon Dioxide Level 21.0 MEQ/L 22.8 MEQ/L Anion Gap 10 MEQ/L 8 MEQ/L Estimat Glomerular Filtration Rate 176 ML/MIN 176 ML/MIN Urine Opiates Screen NEG Urine Barbiturates Screen NEG Urine Amphetamines Screen NEG Urine Benzodiazepines Screen NEG Urine Cocaine Screen NEG Urine Cannabinoids Screen NEG Ethyl Alcohol Level LESS THAN 3 MG/DL Triglycerides Level 174 MG/DL Cholesterol Level 222 MG/DL LDL Cholesterol 120 MG/DL HDL Cholesterol 67.0 MG/DL Cholesterol/HDL Ratio 3.31 RATIO Date/Time Source Procedure Growth Status 09/22/17 11:55 Urine Clean Catch Urine Culture Pending Received Mental Status Examination Appearance: Appropriate Consciousness: Alert Orientation: x4 Motor Activity: Normal gait Speech: Rapid Language: Adequate Fund of Knowledge: Adequate Attention and Concentration: Adequate Memory: Unremarkable Mood: Sad, Anxious Affect: Appropriate Thought Process & Associations: Intact Thought Content: Appropriate Hallucination Type: None Delusion Type: None Suicidal Ideation: Yes Suicidal Plan: Yes (use a gun) Suicidal Intention: No Homicidal Ideation: No Homicidal Plan: No Homicidal Intention: No Insight: Poor Judgment: Adequate Assessment & Plan Problem List: (1) Adjustment disorder with mixed anxiety and depressed mood ICD Codes: F43.23 - Adjustment disorder with mixed anxiety and depressed mood Assessment & Plan Estimated LOS: 5-7 days. Patient is 21-year-old woman who carries a diagnosis of choice I disorder, depression, OCD we will previous psychiatric admission no previous suicide attempts currently with 27 week gestation, under the care of Dr. Mcrae as her mental health provider, was brought in under Agosto act after her RING ROLLING MACHINE OPERATOR physician, Dr. Fly Lewis reported patient feeling hopeless, depressed and having suicidal ideations in the context of multiple psychosocial stressors. Patient at this time continues to endorse feeling depressed with anxiety as his recent has been a major change in her life which has affected her perspective on continuing her work, studies and life goals which as been overwhelming for her recently. We'll start sertraline 50 g by mouth daily for depression, continue BuSpar 30 mg by mouth daily for anxiety, headache continue diphenhydramine 50 mg by mouth at bedtime for sleep disturbance. Patient will continue to be followed by Dr. Lewis while on the inpatient unit for her . Recommendations as per primary medical team. Patient encouraged to maintain personal hygiene to per dissipating groups activities while on the unit. Discharge planning in progress Discharge Planning Patient is discharged back to her parents was psychiatric stable. Hossein Muniz MD Sep 23, 2017 09:02
--- NOTE | 2017-09-23 09:12 | MB ---
cc: ABHISHEK VO DATE OF CONSULTATION 09/23/2017 @8:25 A.M. REASON FOR CONSULTATION Patient at 27 weeks with admission to the hospital yesterday 09/22/2017 Surendra active suicidal ideation. HISTORY OF PRESENT ILLNESS This is a 21-year-old single white female currently with an EDC of 12/19/2017. She is 27 weeks . She has a history of bipolar diagnosis at age 17 and was hospitalized at [facility] at that time. She has been under director long term care psychiatric care currently on Prozac daily. She had come to the office yesterday with complaints of feeling more anxious and more depressed, concern for her health and the baby and had some suicidal ideation. She was advised to come to the hospital for evaluation and admitted via Surendra dickerson for inpatient care. PAST MEDICAL HISTORY Previous surgery, none. MEDICATIONS 1. Vitamins 2. Zofran 3. Prozac ALLERGIES None TRANSFUSIONS None SOCIAL HISTORY She is single, unemployed. Alcohol, tobacco and drugs. FAMILY HISTORY Her family history is noncontributory. PHYSICAL EXAM She is a gravid white female in distress. ABDOMEN: Gravid, nontender, 27 weeks' size. is normal. EXTREMITIES: Normal. ASSESSMENT As above. PLAN Inpatient psychiatric treatment until stable to go home. Recommend this be continued throughout the and if possible she have local follow-up with psychiatry to have quick accessed to care. Contact me, as needed. MD ONESIMO Quezada/KATELYN /8:39 AM /8:54 AM
--- NOTE | 2017-09-23 09:12 | MB ---
cc: ABHISHEK VO DATE OF CONSULTATION 09/23/2017 @8:25 A.M. REASON FOR CONSULTATION Patient at 27 weeks with admission to the hospital yesterday 09/22/2017 Surendra active suicidal ideation. HISTORY OF PRESENT ILLNESS This is a 21-year-old single white female currently with an EDC of 12/19/2017. She is 27 weeks . She has a history of bipolar diagnosis at age 17 and was hospitalized at [facility] at that time. She has been under local company intermodal truck driver psychiatric care currently on Prozac daily. She had come to the office yesterday with complaints of feeling more anxious and more depressed, concern for her health and the baby and had some suicidal ideation. She was advised to come to the hospital for evaluation and admitted via Surendra dickerson for inpatient care. PAST MEDICAL HISTORY Previous surgery, none. MEDICATIONS 1. Vitamins 2. Zofran 3. Prozac ALLERGIES None TRANSFUSIONS None SOCIAL HISTORY She is single, unemployed. Alcohol, tobacco and drugs. FAMILY HISTORY Her family history is noncontributory. PHYSICAL EXAM She is a gravid white female in distress. ABDOMEN: Gravid, nontender, 27 weeks' size. is normal. EXTREMITIES: Normal. ASSESSMENT As above. PLAN Inpatient psychiatric treatment until stable to go home. Recommend this be continued throughout the and if possible she have local follow-up with psychiatry to have quick accessed to care. Contact me, as needed. MD ONESIMO Quezada/KATELYN /8:39 AM /8:54 AM
--- NOTE | 2017-09-23 09:12 | MB ---
cc: ABHISHEK VO DATE OF CONSULTATION 09/23/2017 @8:25 A.M. REASON FOR CONSULTATION Patient at 27 weeks with admission to the hospital yesterday 09/22/2017 Surendra active suicidal ideation. HISTORY OF PRESENT ILLNESS This is a 21-year-old single white female currently with an EDC of 12/19/2017. She is 27 weeks . She has a history of bipolar diagnosis at age 17 and was hospitalized at [facility] at that time. She has been under terminal superintendent psychiatric care currently on Prozac daily. She had come to the office yesterday with complaints of feeling more anxious and more depressed, concern for her health and the baby and had some suicidal ideation. She was advised to come to the hospital for evaluation and admitted via Surendra dickerson for inpatient care. PAST MEDICAL HISTORY Previous surgery, none. MEDICATIONS 1. Vitamins 2. Zofran 3. Prozac ALLERGIES None TRANSFUSIONS None SOCIAL HISTORY She is single, unemployed. Alcohol, tobacco and drugs. FAMILY HISTORY Her family history is noncontributory. PHYSICAL EXAM She is a gravid white female in distress. ABDOMEN: Gravid, nontender, 27 weeks' size. is normal. EXTREMITIES: Normal. ASSESSMENT As above. PLAN Inpatient psychiatric treatment until stable to go home. Recommend this be continued throughout the and if possible she have local follow-up with psychiatry to have quick accessed to care. Contact me, as needed. MD ONESIMO Quezada/KATELYN /8:39 AM /8:54 AM
[2017-09-23] MEDS: busPIRone HCL 10 MG TAB PO SCH (10:21)
[2017-09-23] MEDS: SERTRALINE HCL 50 MG TAB PO SCH (10:21)
[2017-09-23] MEDS: diphenhydrAMINE HCL 25 MG CAP PO PRN (10:28)
[2017-09-23] MEDS: NITROFURANTOIN MONOHYD MACROCR 100 MG CAP PO SCH (16:03)
[2017-09-23 16:15] LABS: HEMOGLOBIN A1C 4.7 % (4.3-6.0)
--- NOTE | 2017-09-23 17:48 | EKG ---
Date Performed: 09/22/2017 Time Performed: 11:39:46 PTAGE: 21 years EKG: Sinus rhythm NORMAL ECG NO PREVIOUS TRACING DOCTOR: Carlita Bai Interpretating Date/Time 09/23/2017 17:46:20
--- NOTE | 2017-09-23 17:48 | EKG ---
Date Performed: 09/22/2017 Time Performed: 11:39:46 PTAGE: 21 years EKG: Sinus rhythm NORMAL ECG NO PREVIOUS TRACING DOCTOR: Carlita Bai Interpretating Date/Time 09/23/2017 17:46:20
--- NOTE | 2017-09-23 17:48 | EKG ---
Date Performed: 09/22/2017 Time Performed: 11:39:46 PTAGE: 21 years EKG: Sinus rhythm NORMAL ECG NO PREVIOUS TRACING DOCTOR: Carlita Bai Interpretating Date/Time 09/23/2017 17:46:20
[2017-09-23 18:19] VITALS: BP 111/72; PULSE 88; RESP 18; TEMP 97.6; O2SAT 100
[2017-09-23] MEDS ORDERED: PRENATAL VITAMIN CHEWABLE TAB PO ONE (19:00)
[2017-09-24 06:34] VITALS: BP 112/59; PULSE 99; RESP 17; TEMP 97.6; O2SAT 99
--- NOTE | 2017-09-24 08:41 | PD.TTN ---
Patient Problems 1. Discharge planning 2. Medication compliance 3. Knowledge deficit 4. Lack of coping skills Progress Toward Goals Provider Present: Dr. Fahad Muniz Provider Input: Patient is new to unit and is adjusting well to low dose medications due to . Patient denying side effects from medications, currently. Patient had consultation with Dr. Lewis to monitor health of patient and . Looking at end of the week discharge for patient. Nurse(s) Input: Patient is cooperative and pleasant around the unit. Patient is denying current suicidal ideations. Patient is compliant with medications. Psychiatric Counselors Present: GILA HernandezMarielena Psych Therapist Input: Patient is cooperative and calm and is oriented x4. Patient is able to express her stressors that lead patient to be admitted to the unit. Patient is tearful and presents with anxiety over situation. Group Spec/RT/OT/MILLER Present: PAUL Stein Group Spec/RT/OT/MILLER Input: Patient participates in select groups with encouragement. Expereinces anxiety and requires redirection. Aparna Rivas [facility] Sep 24, 2017 08:41
[2017-09-24] MEDS: SERTRALINE HCL 50 MG TAB PO SCH (09:16)
[2017-09-24] MEDS: busPIRone HCL 10 MG TAB PO SCH (09:17)
[2017-09-24] MEDS: NITROFURANTOIN MONOHYD MACROCR 100 MG CAP PO SCH ×2 (09:17→21:02)
[2017-09-24] MEDS: PRENATAL VITAMIN CHEWABLE TAB PO SCH (09:17)
--- NOTE | 2017-09-24 16:50 | HHI.PYPN ---
Subjective Chief Complaint: depression with suicidal ideations Remarks Patient seen a follow, chart review. Patient found in day room, cooperative interview today. Patient states that she has started feeling positive yesterday but there during the day at start noticing feeling more negative and doubting that she would improve. Patient continues to report decreased concentration and difficulty to organize her thoughts for decision-making. Patient states that she is trying to do everything she can to improve her depression as she has been attending groups and activities and maintaining visible on the unit. Patient reports that having slept well last evening, denies any physical complaints at this time and reports tolerating medications well. Patient was spoke with therapist which improve patient's mood and is noted to be more hopeful. Review of Systems Except as stated in HPI: all other systems reviewed are Neg Mental Status Examination Appearance: Appropriate Consciousness: Alert Orientation: x4 Motor Activity: Normal gait Speech: Unremarkable Language: Adequate Fund of Knowledge: Adequate Attention and Concentration: Adequate Memory: Unremarkable Mood: Sad (less so today), Anxious (less so today) Affect: Appropriate Thought Process & Associations: Intact Thought Content: Appropriate Hallucination Type: None Delusion Type: None Suicidal Ideation: Yes (denies today) Suicidal Plan: No Suicidal Intention: No Homicidal Ideation: No Homicidal Plan: No Homicidal Intention: No Insight: Poor (improving) Judgment: Adequate Results Labs Date/Time Source Procedure Growth Status 09/22/17 11:55 Urine Clean Catch Urine Culture - Final Enterococcus Faecalis Complete Vitals/IOs Vital Signs Date Time Temp Pulse Resp B/P (MAP) Pulse Ox O2 Delivery O2 Flow Rate FiO2 09/24/17 06:34 97.6 99 17 112/59 (76) 99 Assessment & Plan Problem List: (1) Adjustment disorder with mixed anxiety and depressed mood ICD Codes: F43.23 - Adjustment disorder with mixed anxiety and depressed mood Assessment & Plan Patient noted to have some improve mood, continues to feel depressed along with some anxiety and difficulty with concentration. We'll continue current treatment for now as there is noted to have some improvement but upper titration still a consideration if response is limited. Continue to encourage patient to maintain personal hygiene and participate in groups and activities while on the unit. Discharge planning in progress Justification for Cont. Inpt. At risk for further decompensation if at lower level of care Discharge Planning Patient return back to her residence once psychiatrically stable. Hossein Muniz MD Sep 24, 2017 16:50
[2017-09-24 17:34] VITALS: BP 123/72; PULSE 96; RESP 18; TEMP 98.2; O2SAT 99
[2017-09-24] MEDS: diphenhydrAMINE HCL 50 MG CAP PO PRN (21:02)
[2017-09-25 05:36] VITALS: BP 99/58; PULSE 93; RESP 18; TEMP 98.4; O2SAT 98
[2017-09-25] MEDS: diphenhydrAMINE HCL 25 MG CAP PO PRN (05:58)
[2017-09-25] MEDS: busPIRone HCL 10 MG TAB PO SCH (08:58)
[2017-09-25] MEDS: PRENATAL VITAMIN CHEWABLE TAB PO SCH (08:59)
[2017-09-25] MEDS: SERTRALINE HCL 50 MG TAB PO SCH (08:59)
[2017-09-25] MEDS: NITROFURANTOIN MONOHYD MACROCR 100 MG CAP PO SCH ×2 (08:59→21:00)
--- NOTE | 2017-09-25 09:00 | MH ---
cc: ABHISHEK VO DATE OF ADMISSION 09/22/2017 DATE OF NOTE 09/24/2017 @10:00 p.m. CHART NOTES I met with the patient in the day room while she was watching TV. She is in much better spirits. She has had a medication change while she is here and she is having a more positive outlook. PHYSICAL EXAM ABDOMEN: The abdomen is gravid, nontender and movement is normal. RECOMMENDATIONS I recommend she continue in house until she is no longer a danger to herself or the baby. She has had adequate change in medicines to realize the therapeutic benefits. MD ONESIMO Quezada/KATELYN /8:51 AM /8:58 AM
--- NOTE | 2017-09-25 09:10 | MH ---
cc: ABHISHEK VO DATE OF ADMISSION 09/22/2017 DATE OF NOTE 09/25/2017 @8:45 a.m. CHART NOTE I met with the patient in the tadeo while she was making a phone call. She had not slept well last night, but overall feels better and feels less of a risk to herself. We discussed the ongoing , excellent movement and allowing time in the hospital until she is comfortable and safe to go home and function in the family on her own. MD ONESIMO Quezada/KATELYN /8:51 AM /9:04 AM .2
--- NOTE | 2017-09-25 14:37 | HHI.PYPN ---
Subjective Chief Complaint: depression with suicidal ideations Remarks Patient seen follow, chart review. Patient found participating activities group able to interact with interview today. Patient states that she is feeling "a little better" but her mood has been "monotone" although patient denies any suicidal ideations last time being prior to her admission. Patient expresses frustration that her mood has not greatly improved and that she continues to be perseverative on her decision of where she would like to do with her . Patient states that she puts too much pressure on herself and that she feels that she needs to be better within a certain time frame. Patient was provided with supportive psychotherapy extensively along with nurse. Patient continues to report feeling anxiety having difficulties sleeping last evening. Patient reports being supported by parents who have been in contact with her. Review of Systems Except as stated in HPI: all other systems reviewed are Neg Mental Status Examination Appearance: Appropriate Consciousness: Alert Orientation: x4 Motor Activity: Normal gait Speech: Unremarkable Language: Adequate Fund of Knowledge: Adequate Attention and Concentration: Adequate Memory: Unremarkable Mood: Sad (less so today), Anxious (less so today) Affect: Appropriate Thought Process & Associations: Intact Thought Content: Appropriate Hallucination Type: None Delusion Type: None Suicidal Ideation: No Suicidal Plan: No Suicidal Intention: No Homicidal Ideation: No Homicidal Plan: No Homicidal Intention: No Insight: Fair Judgment: Adequate Results Labs Date/Time Source Procedure Growth Status 09/22/17 11:55 Urine Clean Catch Urine Culture - Final Enterococcus Faecalis Complete Vitals/IOs Vital Signs Date Time Temp Pulse Resp B/P (MAP) Pulse Ox O2 Delivery O2 Flow Rate FiO2 09/25/17 05:36 98.4 93 18 99/58 (72) 98 Assessment & Plan Problem List: (1) Adjustment disorder with mixed anxiety and depressed mood ICD Codes: F43.23 - Adjustment disorder with mixed anxiety and depressed mood Assessment & Plan Patient at this time noted to have improvement in but as per patient feels that she had not progressed much although she denies any suicidality since admission. Patient continues to be perseverative and ruminating on feeling pressured to decide what she wanted to her which causes more anxiety. Patient making an effort to participate in groups and activities as well as clinic staff when she is feeling anxious. We'll increase buspirone to 20 mg by mouth twice a day, increase sertraline 75 mg by mouth daily. Supportive psychotherapy provided. Discharge planning in progress Justification for Cont. Inpt. At risk for further decompensation if at lower level of care Discharge Planning Patient return back to her residence was psychiatrically stable. Hossein Muniz MD Sep 25, 2017 14:37
[2017-09-25] MEDS ORDERED: SERTRALINE HCL 50 MG TAB PO ONE (15:00)
[2017-09-25 15:54] VITALS: BP 130/75; PULSE 99; RESP 17; TEMP 97.4; O2SAT 97
[2017-09-25] MEDS: diphenhydrAMINE HCL 50 MG CAP PO PRN (21:00)
[2017-09-26 05:19] VITALS: BP 99/62; PULSE 90; RESP 16; TEMP 98.1; O2SAT 97
--- NOTE | 2017-09-26 08:42 | MH ---
cc: ABHISHEK VO DATE OF ADMISSION 09/22/2017 DATE OF CHART NOTE 09/26/2017 @8:30 a.m. HISTORY The patient is a 21-year-old single white female, at 27 weeks who was admitted via [facility] on 09/22/2017 for suicidal ideation. She is stable from a standpoint. Excellent movement, vital signs were stable. She is improving on meds and reports she may be discharged home today or tomorrow. She has an office visit with me on Friday for an ultrasound and will keep that appointment. I can be reconsulted if there are any questions or problems obstetrically. MD ONESIMO Quezada/KATELYN /8:34 AM /8:42 AM
[2017-09-26] MEDS ORDERED: busPIRone HCL 10 MG TAB PO SCH (09:00)
[2017-09-26] MEDS ORDERED: SERTRALINE HCL 50 MG TAB PO SCH (09:00)
[2017-09-26] MEDS: PRENATAL VITAMIN CHEWABLE TAB PO SCH (09:14)
[2017-09-26] MEDS: NITROFURANTOIN MONOHYD MACROCR 100 MG CAP PO SCH (09:17)
[2017-09-26] MEDS ORDERED: PRENCHW PO (11:37)
[2017-09-26] MEDS ORDERED: BUSP10TA PO (11:37)
[2017-09-26] MEDS ORDERED: ZOLO50TA PO (11:37)
[2017-09-26] MEDS ORDERED: NITR100C4 PO (12:21)
--- NOTE | 2017-09-26 15:31 | HHI.DS ---
Psychiatry Discharge Summary Inpatient Psychiatric care?: Yes Advance Directive: No Reason Not Provided: patient declined Mental Health AdvanceDirective: No (patient declined) Name and Number: patient declined Health Care Proxy: No (patient declined) Admission Admission Date Sep 22, 2017 at 17:07 Admission Diagnosis: (1) Adjustment disorder with mixed anxiety and depressed mood ICD Code: F43.23 - Adjustment disorder with mixed anxiety and depressed mood Brief History Patient is a 24-year-old woman, single domiciled parents, currently unemployed supported financially by savings and parents, with past psychiatric history of general anxiety disorder, OCD, depression 1 previous psychiatric hospitalization, no previous suicide attempts or self-injurious behavior, has outpatient mental health provider, with a past medical history of current 37 weeks gestation, was brought into the emergency room under [facility] act for depression, anxiety and suicidal ideation with methods of using a gun in the context of multiple psychosocial stressors. As per ED note patient was unsure if she wanted to keep the baby, had been brought to the hospital to be referred by her [employer], Dr. Fly nolasco, in which patient had endorsed feeling depressed, hopeless and having thoughts of suicide by using a gun. Patient also reported feeling hopeless, barely able to function, unable to make day-to-day decisions with decrease in suicidal ideation. She was found sitting in hospital bed, cooperative today. Patient reports that she had been feeling overwhelmed recently had anxiety about keeping the baby, having relationship discord with her boyfriend whom she no longer lives with and feels that life is not moving forward. Patient reports due to the stressors having stopped going to work as well as did not reengage in the following semester in her college studies. Patient reports that she has been feeling increasingly depressed along with suicidal ideations for the past month which has been increasing to 3-4 times a week last time being prior to coming to the hospital and reports that having specific plan but had thought about methods for the past couple days when necessary using a gun despite of her not going 1. Patient reports of escalation having decreased sleep, energy, concentration, feeling depressed, feeling helpless and hopeless, and having suicidal ideations. Patient denies any manic or psychotic symptoms at this time, denies any auditory or visual hallucinations or delusions. Past psychiatric history: 3 psychiatric diagnosis of generalized anxiety disorder, OCD, depression has outpatient provider, Dr. Mike Mcrae, lasting 1 week ago, presented to trials include fluoxetine 20 mg daily history BuSpar 30 mg by mouth daily. Family psychiatric history: Grandfather committed suicide in December of this year, also as per chart noted multiple suicides in the family. Substance use history: Denies Past medical history: currently with 22nd week gestation Allergies: NKDA Social history: Single, no children, currently with first child, domicile with parents whom she recently moved back in with since May but previously living in [place] and attending college. Highest education is neg[employer] in college studying psychology. Unemployed currently supported financially by parents. Tobacco Use In Past 30 Days: No Tobacco Past 30 Days Alcohol Use: 2-4 Times Per Month Hospital Course Patient is a 24-year-old woman, single domiciled parents, currently unemployed supported financially by savings and parents, with past psychiatric history of general anxiety disorder, OCD, depression 1 previous psychiatric hospitalization, no previous suicide attempts or self-injurious behavior, has outpatient mental health provider, with a past medical history of current 37 weeks gestation, was brought into the emergency room under [facility] act for depression, anxiety and suicidal ideation with methods of using a gun in the context of multiple psychosocial stressors. Patient was admitted to the inpatient psychiatric unit for further evaluation and management. Patient was started on sertraline 50mg and titrated up to 75mg PO daily and continued on buspirone 30mg PO daily and titrated up to 40mg PO daily. She responded well to treatment, was noted to have improvement in mood, decrease in anxiety and cessation of suicidal ideations along with being future oriented. Patient was cooperative with staff, no behavioral dyscontrol during admission and was active in groups and activities. Upon discharge patient reported feeling better, noted to be hopeful, future oriented stating wanting to live for her unborn child, family and her love of music; denied any perceptual disturbances nor suicidal ideations or homicidal ideations. Patient agreed to continue treatment and follow up appointments for continuity of care. Patient advised to call 911 or go nearest ED in case of emergency. Patient agreed with plan. Results Blood Pressure 99 / 62 Vital Signs Date Time Temp Pulse Resp B/P (MAP) Pulse Ox O2 Delivery O2 Flow Rate FiO2 09/26/17 05:19 98.1 90 16 99/62 (74) 97 Laboratory Results Test 09/23/17 07:30 Cholesterol Level 222 MG/DL (120-200) HDL Cholesterol 67.0 MG/DL (40.0-60.0) Hemoglobin A1c 4.7 % (4.3-6.0) LDL Cholesterol 120 MG/DL (0-99) Triglycerides Level 174 MG/DL (42-150) Summary of Procedures None Pending results at discharge: No Medications # of Antipsychotic meds at D/C: 0 Approp Antipsych med options 1 - Minimum of three failed multiple trials of monotherapy. 2 - Documented plan to taper to monotherapy due to previous use of multiple meds OR cross-taper in progress at D/C. 3 - Documentation of augmentation of Clozapine. 4 - Justification other than those listed in allowable values 1-3, document here : Discharge Discharge Date: Sep 26, 2017 Discharge Diagnosis: (1) Adjustment disorder with mixed anxiety and depressed mood ICD Code: F43.23 - Adjustment disorder with mixed anxiety and depressed mood Pt Condition on Discharge: Stable Discharge Disposition: Discharge Home Discharge Instructions Diet Instructions: As Tolerated, No Restrictions Activities you can perform: Regular-No Restrictions Scheduled Appointment: [facility] Date: Sep 30, 2017 Appointment Time: 315 Discharge Time > 30 minutes Mental Status Examination Appearance: Appropriate Consciousness: Alert Orientation: x4 Motor Activity: Normal gait Speech: Unremarkable Language: Adequate Fund of Knowledge: Adequate Attention and Concentration: Adequate Memory: Unremarkable Mood: Appropriate Affect: Appropriate Thought Process & Associations: Intact Thought Content: Appropriate Hallucination Type: None Delusion Type: None Suicidal Ideation: No Suicidal Plan: No Suicidal Intention: No Homicidal Ideation: No Homicidal Plan: No Homicidal Intention: No Insight: Adequate Judgment: Adequate Discharge/Advance Care Plan Health Problems: (1) Adjustment disorder with mixed anxiety and depressed mood Goals to promote your health * To prevent worsening of your condition and complications * To maintain your health at the optimal level Directions to meet your goals Take your medications as prescribed Follow your dietary instruction Follow activity as directed Keep your appointments as scheduled Take your immunizations and boosters as scheduled If your symptoms worsen call your PCP, if no PCP go to Urgent Care Center or Emergency Room For 16/06 questions related to your inpatient stay or results of tests pending at discharge, please contact Dr. Hossein Muniz at Smoking is Dangerous to Your Health. Avoid second hand smoking Hossein Muniz MD Sep 26, 2017 15:31
== END 2017-09-26 13:40 | disposition home or self-care (01) | DRG 781 ==
LOC: NEPD 10:52 → NEDA 17:07 → H260 18:43
PROVIDERS: ADMIT Student in an Organized Health Care Education/Training Program; ATTEND Student in an Organized Health Care Education/Training Program
DX: O99.342 Other mental disorders complicating pregnancy, second trimester (principal); R45.851 Suicidal ideations; O23.42 Unspecified infection of urinary tract in pregnancy, second trimester; Z3A.27 27 weeks gestation of pregnancy; F43.23 Adjustment disorder with mixed anxiety and depressed mood; F42.9 Obsessive-compulsive disorder, unspecified; F90.9 Attention-deficit hyperactivity disorder, unspecified type; F41.1 Generalized anxiety disorder; Z81.8 Family history of other mental and behavioral disorders
CPT/HCPCS: 80048; 80053; 80061; 80307; 81001; 83036; 85025; 87077; 87086; 87186; 93005; Q0163